=== PATIENT | male | born 2000 | race Caucasian/White ===

== ENCOUNTER 2023-04-16 16:01 | Emergency (ER) | payer MEDICAID, SELFPAY ==
[2023-04-16 16:17] VITALS: BP 167/90; PULSE 119; RESP 16; TEMP 37.1; O2SAT 98; BMI 24.0
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
[2023-04-16 19:44] VITALS: BP 118/57; PULSE 81; RESP 16; TEMP 36.8; O2SAT 96
== END 2023-04-16 19:46 | disposition home or self-care (01) ==
PROVIDERS: Emergency Provider Emergency Medicine Emergency Medical Services
DX: S09.90XA Unspecified injury of head, initial encounter (principal); V43.52XA Car driver injured in collision with other type car in traffic accident, initial encounter; Y93.9 Activity, unspecified; Y92.410 Unspecified street and highway as the place of occurrence of the external cause; Y99.9 Unspecified external cause status; R41.82 Altered mental status, unspecified
CPT/HCPCS: 70450; 72125; 99283; 99284